=== PATIENT | male | born 1985 | race Caucasian/White ===

== ENCOUNTER 2017-11-18 12:27 | Emergency (ER) | payer MEDICAID ==
[~2017-11-18] VITALS: Ht 180.3 cm; Wt 98.2 kg
[2017-11-18] MEDS ORDERED: KETOROLAC 30 MG/1 ML ONE (13:14)
[2017-11-18] MEDS ORDERED: KETOROLAC 60 MG/2 ML IM ONE (13:30)
[2017-11-18 13:53] VITALS: BP 127/65
== END 2017-11-18 13:56 | disposition home or self-care (01) ==
LOC: ED 13:50
DX: J02.0 Streptococcal pharyngitis (principal); M79.1 Myalgia
CPT/HCPCS: 96372; 99283; J1885

== ENCOUNTER 2017-12-21 00:30 | Observation (INO) | payer MEDICAID ==
[~2017-12-21] VITALS: Ht 180.3 cm; Wt 97.4 kg
[2017-12-21] MEDS ORDERED: MORPHINE SULFATE 4 MG/ML, 1ML IVPush PRN ×2 (01:00→04:30)
[2017-12-21] MEDS ORDERED: SODIUM CHLORIDE 0.9% 1,000ML IVBOLUS ONE (01:00)
[2017-12-21] MEDS ORDERED: ONDANSETRON 2MG/ML, 2ML IVPush ONE (01:00)
[2017-12-21] MEDS ORDERED: SODIUM CHLORIDE FLUSH 10ML SYR IVF ONE (01:00)
[2017-12-21 01:02] LABS: BASOPHILS # (AUTO) 0.09 x10^3/uL (0-0.1); BASOPHILS % (AUTO) 1 % (0-1); EOSINOPHILS # (AUTO) 0.15 x10^3/uL (0-0.4); EOSINOPHILS % (AUTO) 1 % (1-7); LYMPHOCYTES # (AUTO) 2.78 x10^3/uL (1-3.4); LYMPHOCYTES % (AUTO) 17 % (22-44); MD NO; MEAN CORPUSCULAR HEMOGLOBIN 31.3 pg (27.5-34.5); MEAN CORPUSCULAR HGB CONC 34.6 g/dL (33.2-36.2); MEAN CORPUSCULAR VOLUME 90.4 fL (81-97); MEAN PLATELET VOLUME 7.3 fL (7.4-10.4); MONOCYTES # (AUTO) 0.68 x10^3/uL (0.2-0.8); MONOCYTES % (AUTO) 4 % (2-9); NEUTROPHILS # (AUTO) 12.58 x10^3/uL (1.8-6.8); NEUTROPHILS % (AUTO) 77 % (42-75); PLATELET COUNT 306 x10^3/uL (130-400); RED BLOOD COUNT 5.22 x10^6/uL (4.38-5.82); RED CELL DISTRIBUTION WIDTH 13.6 % (9.4-14.8)
[2017-12-21 01:11] LABS: ALANINE AMINOTRANSFERASE 59 U/L (12-78); ALBUMIN 3.7 g/dL (3.4-5.0); ANION GAP 9 mmol/L (5-15); CHLORIDE 104 mmol/L (98-107)
[2017-12-21 01:14] LABS: ALKALINE PHOSPHATASE 81 U/L (45-117); BILIRUBIN,TOTAL 0.3 mg/dL (0.2-1.0); TOTAL PROTEIN 7.5 g/dL (6.4-8.2)
[2017-12-21] MEDS ORDERED: ONDANSETRON 2MG/ML, 2ML ONE ×2 (01:18→03:14)
[2017-12-21] MEDS ORDERED: MORPHINE SULFATE 4 MG/ML, 1ML ONE (01:18)
[2017-12-21] MEDS ORDERED: OMNIPAQUE 350 MG/ML, 100ML BOTTLE ONE (01:45)
[2017-12-21 01:48] LABS: MICROSCOPIC NOT IND
[2017-12-21 01:51] LABS: CULTURE INDICATED? NO
[2017-12-21] MEDS ORDERED: CEFOTETAN PMX 1GM/50ML 50 ML IV ONE (02:30)
[2017-12-21] MEDS ORDERED: CEFOTETAN PMX 1GM/50ML 50 ML ONE (02:34)
[2017-12-21] MEDS ORDERED: BUPIVACAINE/PF 0.5% ONE (02:55)
[2017-12-21] MEDS ORDERED: EPINEPHRINE 1 MG/ML, 1ML ONE (02:56)
[2017-12-21 02:59] VITALS: BP 127/82
[2017-12-21] MEDS ORDERED: FENTANYL PF 100 MCG/2ML ONE ×3 (03:11→04:36)
[2017-12-21] MEDS ORDERED: MIDAZOLAM 1 MG/ML, 2ML ONE (03:12)
[2017-12-21] MEDS ORDERED: NEOSTIGMINE 1 MG/ML, 10ML ONE (03:14)
[2017-12-21] MEDS ORDERED: CEFAZOLIN 1,000 MG ONE (03:14)
[2017-12-21] MEDS ORDERED: ROCURONIUM 10MG/ML,5ML ONE (03:14)
[2017-12-21] MEDS ORDERED: GLYCOPYRROLATE 0.2MG/1ML, 5ML ONE (03:14)
[2017-12-21] MEDS ORDERED: DEXAMETHASONE 4 MG/ML, 1ML ONE (03:14)
[2017-12-21] MEDS ORDERED: PROPOFOL 10 MG/ML, 20ML ONE (03:14)
[2017-12-21] MEDS ORDERED: SUCCINYLCHOLINE 20 MG/ML, 10ML ONE (03:14)
[2017-12-21] MEDS ORDERED: BUPIVACAINE/PF-EPI 0.5% 1:200K INFIL ONE (03:52)
[2017-12-21] MEDS ORDERED: OXYcodone/APAP 7.5/325MG TABLET PO PRN (04:30)
[2017-12-21] MEDS ORDERED: ONDANSETRON 2MG/ML, 2ML IVPush PRN (04:30)
[2017-12-21] MEDS ORDERED: ACETAMINOPHEN 325 MG TABLET PO PRN (04:30)
[2017-12-21] MEDS ORDERED: HYDROmorphone 1 MG/ML, 1ML IV PRN (04:30)
[2017-12-21] MEDS ORDERED: PROCHLORPERAZINE 5 MG/ML, 2ML IV PRN (04:30)
[2017-12-21] MEDS ORDERED: morphine SULFATE 10 MG/ML, 1ML IVPush PRN (04:30)
[2017-12-21] MEDS ORDERED: PROMETHAZINE 25 MG/ML, 1ML IM PRN (04:30)
[2017-12-21] MEDS ORDERED: DIAZEPAM 5 MG/ML, 2ML IVPush PRN (04:30)
[2017-12-21] MEDS ORDERED: MEPERIDINE/PF 25MG/0.5ML IVPush PRN (04:30)
[2017-12-21] MEDS ORDERED: CEFOTETAN PMX 1GM/50ML 50 ML IVPB SCH (04:30)
[2017-12-21] MEDS ORDERED: ONDANSETRON 2MG/ML, 2ML IV PRN (04:30)
[2017-12-21] MEDS ORDERED: ONDANSETRON ODT 8 MG PO PRN (04:30)
[2017-12-21] MEDS ORDERED: OXYcodone 5 MG/5 ML ORAL.SOL UDC PO PRN (04:30)
[2017-12-21] MEDS ORDERED: OXYcodone 5 MG/5 ML ORAL.SOL UDC ONE (04:36)
[2017-12-21] MEDS: FENTANYL PF 100 MCG/2ML IV PRN ×2 (04:37→04:42)
[2017-12-21] MEDS ORDERED: MEPERIDINE/PF 50 MG/ML ONE (04:39)
[2017-12-21] MEDS ORDERED: LORazepam 2 MG/ML, 1ML ONE (05:12)
[2017-12-21] MEDS: LORazepam 2 MG/ML, 1ML IVPush PRN ×2 (05:15→05:20)
[2017-12-21] MEDS: D5%-0.45NACL+KCL 20MEQ 1,000 ML IV SCH ×2 (07:54→10:31)
[2017-12-21] MEDS ORDERED: OXYC-306 PO (08:59)
[2017-12-21] MEDS ORDERED: CIPR500T87 PO (09:00)
== END 2017-12-21 13:11 | disposition home or self-care (01) ==
LOC: ED 00:52 → EDIP 02:09 → INTOOBSV 02:09 → 4NOR 06:20 → DCLOUNGE 12:56
PROVIDERS: ADMIT Surgery; ATTEND Surgery
DX: K35.80 Unspecified acute appendicitis (principal); F17.200 Nicotine dependence, unspecified, uncomplicated
CPT/HCPCS: 36415; 44970; 74177; 80053; 81003; 83690; 85025; 88304; 96365; 99285; G0378; J0171; J0330; J0690; J1100; J2060; J2175; J2250; J2405; J2704; J2710; J3010; J3480; J3490; J7030; Q9967; S0074; 96374